=== PATIENT | male | born 1975 | race Caucasian/White ===

== ENCOUNTER 2016-08-29 08:22 | Outpatient (CLI) | payer OTHER | END 2016-08-29 08:23 | disposition home or self-care (01) | DX: I86.1 Scrotal varices (principal) ==

== ENCOUNTER 2017-01-18 07:17 | Outpatient (CLI) | payer OTHER ==
[2017-01-18 11:50] LABS: CHOL/HDL RATIO 2.6 (<5.0); CHOLESTEROL 136 mg/dL; GLUCOSE,FASTING 90 mg/dL (70-100); HDL CHOLESTEROL 52 mg/dL; LDL/HDL RATIO 1.4 (<3.6); TRIGLYCERIDES 51 mg/dL; VLDL CHOLESTEROL 10 mg/dL
== END 2017-01-18 07:18 | disposition home or self-care (01) ==
LOC: LAB.F 07:17
PROVIDERS: ATTEND Internal Medicine
DX: Z13.6 Encounter for screening for cardiovascular disorders (principal); Z13.1 Encounter for screening for diabetes mellitus
CPT/HCPCS: 36415; 80061; 82947